=== PATIENT | female | born 2000 | race Caucasian/White ===

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

== ENCOUNTER 2025-02-27 12:43 | Emergency (ER) | payer OTHER, SELFPAY ==
[2025-02-27 12:43] VITALS: BP 130/88; PULSE 90; RESP 16; TEMP 36.4; O2SAT 99; BMI 41.1
--- NOTE | 2025-02-27 12:57 | VDLE_ITS ---
Reason For Study Reason For Study: Right leg swelling RIGHT GSV is normal. CFV is compressible, spontaneous, phasic, competent and demonstrates normal augmentation. FV is compressible, spontaneous, phasic, competent and demonstrates normal augmentation. POP V is compressible, spontaneous, phasic, competent and demonstrates normal augmentation. T/P Trunk is compressible. PTV is compressible. RT PerV is compressible. Procedure This is a venous duplex using B-mode, color flow and spectral Doppler. Exam performed portable in ED. A preliminary report was called and/or faxed to ED. VL/Venous Duplex US, Unilateral Interpretation Summary Deep veins of the right lower extremity are patent and compressible segmentally . There is no evidence of right lower extremity deep vein thrombosis. The right great saphenous vein appears patent a nd compressible segmentally. Ordering Physician: Júnior Champagne Referring Physician: Yumiko Lees Performed By: Lindsey Foreman RVT
--- NOTE | 2025-02-27 13:48 | EDS_ITS ---
HPI History of Present Illness Chief Complaint: Edema Narrative Narrative: Chief complaint and HPI: Right lower extremity swelling. 24-year-old female with no significant past medical history presents for evaluation of right lower extremity swelling. Patient states she goes to [employer]. She states yesterday she noticed that her right lower extremity was more swollen than the left. She denies any injury. She denies any pain in the area. Denies any lacerations, ecchymosis, bug bites, numbness/tingling, weakness. Patient went to an urgent care and was referred to the emergency department to rule out blood clot. Patient denies any fever, chills, chest pain, shortness of breath, Ravi pain, nausea, vomiting. She is not on control. No history of blood clots. Review of systems: See HPI Medications: As listed on the chart Allergies: As listed on the chart PFSH: Per chart Vital signs: As listed on the chart. Reviewed. Physical exam: Gen: A&O x3, NAD Head: Normocephalic, atraumatic Eyes: No sclera icterus, conjunctiva clear ENT: Moist mucous membranes Neck: Trachea midline, No JVD CV: RRR, no murmurs Resp: Lungs CTA BL, no w/r/c GI: Abd soft, non-distended, non-tender, no r/r/g Musc: Full ROM, no deformity, right calf is mildly swollen compared to the left- no warmth/erythema/abrasion/laceration/ecchymosis/induration/fluctuance, DP/PT pulses +2 bilaterally, compartments soft, negative Homans' sign, good capillary refill Skin: Warm, dry Neuro: Alert, oriented, grossly intact, sensation intact Psych: Cooperative, appropriate mood and affect [facility] Home Medications ?Medication ?Instructions ?Recorded ?Last Taken ?Type bacitracin zinc 500 unit/gram 1 applic topical TID #1 tube 10/15/19 Unknown Rx topical ointment famotidine 10 mg tablet 10 mg PO DAILY 10/15/19 Unkn own History ibuprofen 800 mg tablet 800 mg PO TID PRN PRN Unknown Rx Pain/Inflammation #20 tabs sertraline 25 mg tablet 25 mg PO DAILY 10/15/19 Unkn own History Allergy/AdvReac Type Severity Reaction Status Date / Time No Known Allergies Allergy Verified 02/27/25 12:44 Social History Smoking Status: Current every day smoker tobacco type: cigarettes EXAM Physical Exam Const Vital Signs: 02/27/25 12:43 02/27/25 12:53 Temperature 97.6 F L Temperature Source Temporal Pulse Rate 90 Respiratory Rate 16 Respiratory Effort Normal Respiratory Pattern Normal Blood Pressure 130/88 H Blood Pressure Mean 102 Pulse Ox 99 Oxygen Delivery Method Room Air MDM MDM MDM Narrative Medical decision making narrative: 24-year-old female with no significant past medical history presents for evaluation of right lower extremity swelling. She states yesterday she noticed that her right lower extremity was more swollen than the left. She denies any injury. She denies any pain in the area. Denies history of DVT. No signs or symptoms of infection. On physical exam, patient's right lower extremity is mildly swollen compared to the left. Otherwise unremarkable. Nonpainful. Differential diagnosis includes but is not limited to venous insufficiency, muscle strain, DVT. Given that there has been no injury and no pain, I do not think any x-ray is needed at this time. Physical exam is not consistent with cellulitis. Will obtain venous duplex ultrasound. Venous duplex ultrasound negative for DVT. At this point in time, no clear etiology for patient's sw elling. Follow-up with primary care physician. Return precautions explained. Return back to ED symptoms change or worsen. Patient and family confirmed understand the plan. Patient able to discharge home. Impression: 1. Right lower extremity edema Discharge Plan Triage Chief Complaint: Edema ED Provider: Júnior Champagne Dx/Rx/DC Orders Prescriptions: No Action ibuprofen 800 MG tablet 800 mg PO TID PRN PRN (Reason: Pain/Inflammation) Qty: 20 0RF bacitracin zinc 1 APPLIC ointment 1 applic topical TID Qty: 1 0RF famotidine 10 MG tablet 10 mg PO DAILY sertraline 25 MG tablet 25 mg PO DAILY Primary Care Provider: Care Physician,No Primary Referrals: Care Physician,No Primary [Primary Care Provider] - Print Language: Spanish
[2025-02-27 13:51] VITALS: BP 130/88; PULSE 90; RESP 16; TEMP 36.4; O2SAT 99
--- OUTSIDE RECORDS SUMMARY | 2025-02-27 19:55 | XMS RPT_ITS | CCD ---
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 Comment on above: Order Comment: Is th is specimen being sent to an external lab?->No Result Comment: Refe rence ranges provided by [facility] are based on Endocrine Society Guidelines: Level Characterization <21 ng/mL Vitamin D deficiency 21-29 ng/mL Suboptimal Vitamin D status 30-100 ng/mL Optimal Vitamin D status >100 ng/mL Potentially toxic Vitamin D effects NOTE: New Reference Ranges effective 18 Performed By: #### V 25DH #### [address] [address] Comp Metabolic Panelon 08-09 Albumin [Mass/Vol] 4.6 g/dL High 3.2-4.5 [facility] Comment on above: Order Comment: Is th is specimen being sent to an external lab?->No Performed By: #### C MP #### [address] [address] ALP [Catalytic activity/Vol] 60 U/L Normal 43-83 [facility] Comment on above: Order Comment: Is th is specimen being sent to an external lab?->No Performed By: #### C MP #### [address] [address] ALT [Catalytic activity/Vol] 10 U/L Normal 0-31 [facility] Comment on above: Order Comment: Is th is specimen being sent to an external lab?->No Performed By: #### C MP #### [address] [address] AST [Catalytic activity/Vol] 17 U/L Normal 0-31 [facility] Comment on above: Order Comment: Is th is specimen being sent to an external lab?->No Performed By: #### C MP #### [address] [address] Bili,Total 0.6 mg/dl Normal 0.0-1.0 [facility] Comment on above: Order Comment: Is th is specimen being sent to an external lab?->No Result Comment: Premature : 1 Day 1.0-6.0 mg/dl 2 Day 6.0-8.0 mg/dl 3-5 Day 10.0-15.0 mg/dl Performed By: #### C MP #### [place] [address] Calcium [Mass/Vol] 9.3 mg/dL Normal 7.6-11.0 [facility] Comment on above: Order Comment: Is th is specimen being sent to an external lab?->No Performed By: #### C MP #### [place] [address] Chloride [Moles/Vol] 106 mmol/L Normal 96-108 [facility] Comment on above: Order Comment: Is th is specimen being sent to an external lab?->No Performed By: #### C MP #### [address] [address] CO2 [Moles/Vol] 25.4 mmol/L Normal 22.0-29.0 [facility] Comment on above: Order Comment: Is th is specimen being sent to an external lab?->No Performed By: #### C MP #### [address] [address] Creatinine [Mass/Vol] 0.68 mg/dL Normal 0.50-1.00 [facility] Comment on above: Order Comment: Is th is specimen being sent to an external lab?->No Result Comment: Premature 0.3-1.0 mg/dL Performed By: #### C MP #### [address] [address] Glucose [Mass/Vol] 85 mg/dL Normal 70-99 [facility] Comment on above: Order Comment: Is th is specimen being sent to an external lab?->No Result Comment: Criteria for Diagnosis of Diabetes(Effective 01/11/11): Fasting specimen (no caloric intake for at least 8 hours). <100 mg/dl Normal 100-125 mg/dl Increased Risk for Diabetes >125 mg/dl Diagnostic for Diabetes Random Glucose (any time of day without regard to last meal). >=200 mg/dl plus Classic Symptoms of Diabetes Performed By: #### C MP #### [place] [address] Potassium [Moles/Vol] 3.8 mmol/L Normal 3.3-5.1 [facility] Comment on above: Order Comment: Is th is specimen being sent to an external lab?->No Performed By: #### C MP #### [place] [address] Protein [Mass/Vol] 8.4 g/dL High 6.0-8.0 [facility] Comment on above: Order Comment: Is th is specimen being sent to an external lab?->No Performed By: #### C MP #### [place] [address] Sodium [Moles/Vol] 138 mmol/L Normal 133-145 [facility] Comment on above: Order Comment: Is th is specimen being sent to an external lab?->No Performed By: #### C MP #### [address] [address] Urea nitrogen [Mass/Vol] 12 mg/dL Normal 4-19 [facility] Comment on above: Order Comment: Is th is specimen being sent to an external lab?->No Performed By: #### C MP #### [place] [address] ESRon 08-09-2019 ESR (Bld) [Velocity] 14 mm Normal [facility] Comment on above: Order Comment: Is th is specimen being sent to an external lab?->No Performed By: #### S RATE #### [address] [address] ESR (Bld) [Velocity] ----- Normal [facility] Comment on above: Order Comment: Is th is specimen being sent to an external lab?->No Result Comment: Male Female Child 0-13 Child 0-13 Adult 0- 9 Adult 0-20 Performed By: #### S RATE #### [address] [address] Hemoglobin A1con 08-09-2019 HbA1c (Bld) [Mass fraction] ----- Normal [facility] Comment on above: Order Comment: Is th is specimen being sent to an external lab?->No Result Comment: Reference Interval <5.7% 5.7%-6.4% prediabetes >/= 6.5% diabetes Targets for diabetes management: Type I <7.5% Type II <7.0% Change in reference range effective 2018 Performed By: #### H BA1C #### [address] [address] Lipid Panelon 08-09-2019 Cholesterol [Mass/Vol] 140 mg/dL Normal 0-169 [facility] Comment on above: Order Comment: Is th is specimen being sent to an external lab?->No Result Comment: Acceptable <170 mg/dL Borderline 170-199 mg/dL Abnormal >199 mg/dL NOTE: Reference Range change effective 07/11/18 Performed By: #### L IPID #### [address] [address] Cholesterol in HDL [Mass/Vol] 39 mg/dL Abnormal [facility] Comment on above: Order Comment: Is th is specimen being sent to an external lab?->No Result Comment: Acceptable >45 mg/dL Borderline 40-45 mg/dL Abnormal <40 mg/dL NOTE: Reference Range change effective 07/11/18 Performed By: #### L IPID #### [address] [id number] Cholesterol in LDL [Mass/Vol] 93 mg/dL Normal 0-109 [facility] Comment on above: Order Comment: Is th is specimen being sent to an external lab?->No Result Comment: Acceptable <110 mg/dL Borderline 110-129 mg/dL Abnormal >129 mg/dl NOTE: Reference Range change effective 07/11/18 Performed By: #### L IPID #### [address] [id number] Non-HDL Cholesterol 101 mg/dL Normal 0-119 [facility] Comment on above: Order Comment: Is th is specimen being sent to an external lab?->No Result Comment: Acceptable <120 mg/dL Borderline 120-144 mg/dL Abnormal >144 mg/dl Performed By: #### L IPID #### [address] [address] Triglyceride [Mass/Vol] 41 mg/dL Normal 0-89 [facility] Comment on above: Order Comment: Is th is specimen being sent to an external lab?->No Result Comment: Acceptable <90 mg/dl Borderline 90-129 mg/dl Abnormal >129 mg/dl NOTE: Reference Range change effective 07/11/18 Result invalid if not a fasting specimen. Performed By: #### L IPID #### [address] [address] Progress Noteon 08-09-2019 [employer] Aut[employer] Interface Message Text Patient ID: Vick Chan is a 18 y.o. female. Her chief complaint(s) include: 18 YEAR WELL CHILD (stomach pain, hives- mom thinks its stress, bumps on hands and feet that are painfull hurts to walk hurts to use hands) Assessment 1. Encounter for routine child health examination without abnormal findings 2. Overweight 3. Abnormal weight gain 4. Constipation, unspecified constipation type 5. Depression with anxiety 6. Screening for endocrine, metabolic and immunity disorder 7. Exercise counseling 8. Encounter for dietary counseling and surveillance 9. Need for vaccination 10. Screening for lipoid disorders 11. Rash and nonspecific skin eruption 12. Abdominal pain, generalized Plan Vick was seen today for 18 year well child. Diagnoses and all orders for this visit: Encounter for routine child health examination without abnormal findings - Behavioral/Emotional Assessment w Score - PHQ-9 - TSH - T4, free (Clinic Collect) - Cancel: AST [SGOT] (Clinic Collect) - Cancel: ALT [SGPT] (Clinic Collect) - Vitamin D 25 hydroxy (Clinic Collect) - Hemoglobin A1c (Clinic Collect) Overweight - TSH - T4, free (Clinic Collect) - Cancel: AST [SGOT] (Clinic Collect) - Cancel: ALT [SGPT] (Clinic Collect) - Hemoglobin A1c (Clinic Collect) Abnormal weight gain - TSH - T4, free (Clinic Collect) - Cancel: AST [SGOT] (Clinic Collect) - Cancel: ALT [SGPT] (Clinic Collect) - Hemoglobin A1c (Clinic Collect) Constipation, unspecified constipation type Depression with anxiety - sertraline (ZOLOFT) 25 MG tablet; Take 1 Tab (25 mg) by mouth daily Screening for endocrine, metabolic and immunity disorder - TSH - T4, free (Clinic Collect) - Cancel: AST [SGOT] (Clinic Collect) - Cancel: ALT [SGPT] (Clinic Collect) - Vitamin D 25 hydroxy (Clinic Collect) - Hemoglobin A1c (Clinic Collect) - POCT Blood Glucose Exercise counseling Encounter for dietary counseling and surveillance Need for vaccination - Meningococcal ACWY (MENACTRA) - Meningococcal B (BEXSERO) - Influenza Vaccine 0.5 mL >= 6 mo Quadrivalent (PF) Screening for lipoid disorders - Lipid panel - Venipuncture Rash and nonspecific skin eruption Abdominal pain, generalized - Comprehensive metabolic panel (Clinic Collect) - ESR (Clinic Collect) Discussed restarting fiber gummies for the constipation since they appeared to work in the past. Will send picture of rash on hands and feet to dermatology to see if they have any thoughts. Will restart counseling for patient to help with depression/anxiety. Return in about 1 year (around 08/09/2020) for well check, 1 months for Depression/Anxiety medication recheck. Subjective She is accompanied by her mother. 18 YEAR WELL CHILD Home: Vick eats meals with family, has an adult to turn to for help, is permitted and able to make independent decisions and pays bills (phone). Vick has no home risk identified. Education: Vick is in 12th grade and is adjusting adequately, earns A's & B's and is getting along with peers. (Struggling with Statistics). Eating: Vick drinks non-sweetened liquids (drinks a lot of pop). Vick does not eat regular meals including fruits and vegetables, does not eat breakfast, does not limit fast food and does not have a calcium source. Activities & Sports: Vick has a job ([employer]) and performs at least 1 hour of physical activity daily. Vick engages in screen time more than 2 hours daily, does not play team sports, does not participate in music programs and does not participate in clubs. Drugs: Vick does not use tobacco, does not use drugs, does not use alcohol and does not vape. Safety: Vick has a violence free home, has peer relationships free from violence and uses seat belt (only if in the front---instructed to wear seat belt no matter where she is riding). Vick does not use helmet (never rode a bike) and does not use phone/text while driving (does not drive). Sex: The patient has never had a sexual partner. The patient is interested in males. The patient has never had sex. The patient's sexual orientation is heterosexual. The patient's gender identity is cisgender. Suicidality: Vick displays self-confidence (depends on the day), has problems with sleep, has depression, has anxiety, has mood swings and has a mental health risk identified. Vick does not have ways to cope with stress, has no suicidal ideation, has no homicidal ideation and is not engaged in counseling (in the past). PHQ-9 Score: 15 Menstruation Last Menstrual period: LMP from Vitals Patient's last menstrual period was 07/28/2019.. (Menarche: age 13) Menstruation: regular periods and minimal cramping Output Urine and Stool Pattern: Urine and Stool Pattern: Normal stool pattern, constipation (off/on), normal urine pattern, no nocturnal enuresis. Stool Consistency: hard/firm Sleep Sleeping Difficulty: difficulty falling asleep Hours of sleep at a time: 4 (to 8 hours) Teen Anticipatory Guidance The following anticipatory guidance was reviewed during the visit: Nutrition: limit junk food/fast food and soft drinks. Safety: gun safety, home safety and use safety helmet/gear with activities. Social: avoid or limit screen time and parental limits and consequences for unacceptable behavior. Health: age appropriate dental care, age appropriate sleep habits, elevated noise and hearing, how to resist peer pressure to smoke, drink, use drugs, if abusing drugs or alcohol help is available, seek assistance, contraception/practice safe sex/ use condoms, practice abstinence- the safest way to prevent and STDs, discuss athletic conditioning/ weight training/weight supplements, learn to manage time and activities and be responsible for attendance/ homework/ course selection. Screenings Previous Vaccine Reactions: No. Life events information was reviewed-no referral needed (Social determinant questionnaire completed: no concerns at this time) Tuberculosis Concerns: Negative Tuberculosis Screen Concerns: no exposure to Tb or person with positive ppd Hearing Vision Concerns: Patient wears glasses or contact lenses. The caregiver has no concerns about the patient's hearing. The caregiver has concerns about the patient's vision. Patient is being seen by rail loader or steel pourer. (Patient has really poor vision---eye doctor trying to decide next step). Hyperlipidemia Concerns: Positive Hyperlipidemia Screen Concerns: parent or grandparent with [place] angina peripheral or cerebrovascular disease <55 years (father) Negative Hyperlipidemia Screen Concerns: no parent with cholesterol >240mg/dl BMI >95%: zoloft. Additional Parental Concerns: Patient will randomly get rash/painful lesions on hands and feet---off/on. Lesions also itch. No pattern to the onset. Could be related to stress. Lesions can be hard. May last couple of days and resolve. Nothing seems to help but patient won't take many meds. Has history of ongoing GI problems including constipation/dairy intolerance. Primary Care Review of Systems Objective Vital Signs 08/09/19 0920 BP: 122/74 Pulse: 109 Weight: 94.1 kg Height: 163 cm Body mass index is 35.42 kg/m . Physical Exam Constitutional: She appears well. She is active. No distress. overweight HENT: Head: Atraumatic. Right Ear: Tympanic membrane and external ear normal. Left Ear: Tympanic membrane and external ear normal. Nose: Nose normal. Mouth/Throat: Mucous membranes are moist. Dentition is normal. Oropharynx is clear. Eyes: Conjunctivae and EOM are normal. No strabismus. Pupils are equal, round, and reactive to light. Neck: Normal range of motion. Neck supple. Thyroid normal. No neck adenopathy. Cardiovascular: Normal rate, regular rhythm, S1 normal and S2 normal. Pulses are palpable. Heart murmur not heard. Pulmonary/Chest: Breath sounds normal. No respiratory distress. Exhibits no deformity. Abdominal: Soft. Bowel sounds are normal. She exhibits no distension and no mass. There is no hepatosplenomegaly. There is no tenderness. Musculoskeletal: Normal range of motion. Back: She exhibits no scoliosis. Neurological: She is alert. She has normal strength. She exhibits normal muscle tone. Gait normal. Skin: No rash noted. There is no pallor. Skin is warm. Vitals reviewed: Blood pressure 122/74, pulse 109, height 163 cm, weight 94.1 kg, last menstrual period 07/28/2019. Last Result POCT Blood Glucose Collection Time: 08/09/19 10:24 AM Result Value Ref Range POCT Glucose, Blood 88 60 - 110 mg/dL Normal [facility] Vital Signs Date Time Vital Sign Value Performing Clinician Rubeni ehsan 02-27-2025 13:51-0400 Body temperature 97.6 [degF] Dr. Júnior Champagne DO Work Phone: [facility] 02-27-2025 13:51-0400 Diastolic blood pressure 88 mm[Hg] Dr. Júnior Champagne DO Work Phone: [facility] 02-27-2025 13:51-0400 Heart rate 90 /min Dr. Júnior Champagne DO Work Phone: [facility] 02-27-2025 13:51-0400 Respiratory rate 16 /min Dr. Júnior Champagne DO Work Phone: [facility] 02-27-2025 13:51-0400 SaO2% (BldA) [Mass fraction] 99 % Dr. Júnior Champagne DO Work Phone: [facility] 02-27-2025 13:51-0400 Systolic blood pressure 130 mm[Hg] Dr. Júnior Champagne DO Work Phone: [facility] 02-27-2025 12:43-0400 Body height 162.[address] Júnior Champagne DO Work Phone: [facility] 02-27-2025 12:43-0400 Body mass index (BMI) [Ratio] 41.1 kg/m2 Dr. Júnior Champagne DO Work Phone: [facility] 02-27-2025 12:43-0400 Body weight 108.[address] Júnior Champagne DO Work Phone: [facility] Encounters Encounter Date Encounter Type Care Provider Facility Start: 02-27-2025 End: 02-27-2025 Emergency department patient visit Dr. Júnior Champagne DO Work Phone: -Emergency Department Work Phone: Plan of Treatment Date Care Activity Detail Author Start: 02-27-2025 [facility] Patient Education ED Peripheral Edema, Unilateral [facility] Work Phone: Payers Date Payer Category Payer Policy ID Unknown [id number] Unknown [id number] Unknown [id number] Social History Date Type Detail Facility Start: [facility]27[facility] Start: 2000 Sex Assigned At Female [facility] Mental Status Date Assessment Result Facility 02-27-2025 Cognitive function Level Of Cons ciousness Awake;Alert;Appropriate;Follow s Commands [facility] Work Phone: Discharge summary 02-27-2025 Note Date & Type Note Facility 02-27-2025 Discharge summary Note Date/Time February 27, 2025 1:50 pm [facility] Medical Records Department [address] [place] [address] Emergency Department Summary 02/27/25 MR#: [id number] Acct: [id number] Name: VICK CHAN Rep #:[id number] : 2000 24 From: Júnior bonillaett DO PCP: Care Physician,No Primary Status :REG ER Location: ED HPI History of Present Illness Chief Complaint: Edema Narrative Narrative: Chief complaint and HPI: Right lower extremity swelling. 24-year-old female with no significant past medical history presents for evaluation of right lower extremity swelling. Patient [place]. She states yesterday she noticed that her right lower extremity was more swollen than the left. She denies any injury. She denies any pain in the area. Denies any lacerations, ecchymosis, bug bites, numbness/tingling, weakness. Patient went to an urgent care and was referred to the emergency department to rule out bloodclot. Patient denies any fever, chills, chest pain, shortness of breath, Ravi pain, nausea, vomiting. She is not on control. No history of blood clots. Review of systems: See HPI Medications: As listed on the chart Allergies: As listed on the chart PFSH: Per chart Vital signs: As listed on the chart. Reviewed. Physical exam: Gen: A&O x3, NAD Head: Normocephalic, atraumatic Eyes: No sclera icterus, conjunctiva clear ENT: Moist mucous membranes Neck: Trachea midline, No JVD CV: RRR, no murmurs Resp: Lungs CTA BL, no w/r/c GI: Abd soft, non-distended, non-tender, no r/r/g Musc: Full ROM, no deformity, right calf is mildly swollen compared to the left-no warmth/erythema/abrasion/laceration/ecchymosis/indur ation/fluctuance, DP/PT pulses +2 bilaterally, compartments soft, negative Homans' sign, good capillary refill Skin: Warm, dry Neuro: Alert, oriented, grossly intact, sensation intact Psych: Cooperative, appropriate mood and affect [facility] Home Medications ?Medication ?Instructions ?Recorded ?Last Taken ?Type bacitracin zinc 500 unit/gram 1 applic topical TID #1 tube 10/15/19 Unknown Rx topical ointment famotidine 10 mg tablet 10 mg PO DAILY 10/15/19 Unkn own History ibuprofen 800 mg tablet 800 mg PO TID PRN PRN Unknown Rx Pain/Inflammation #20 tabs sertraline 25 mg tablet 25 mg PO DAILY 10/15/19 Unkn own History Allergy/AdvReac Type Severity Reaction Status Date / Time No Known Allergies Allergy Verified 02/27/25 12:44 Social History Smoking Status: Current every day smoker tobacco type: cigarettes EXAM Physical Exam Const Vital Signs: 02/27/25 12:43 02/27/25 12:53 Temperature 97.6 F L Temperature Source Temporal Pulse Rate 90 Respiratory Rate 16 Respiratory Effort Normal Respiratory Pattern Normal Blood Pressure 130/88 H Blood Pressure Mean 102 Pulse Ox 99 Oxygen Delivery Method Room Air MDM MDM MDM Narrative Medical decision making narrative: 24-year-old female with no significant past medical history presents for evaluation of right lower extremity swelling. She states yesterday she noticed that her right lower extremity was more swollen than the left. She denies any injury. She denies any pain in the area. Denies history of DVT. No signs or symptoms of infection. On physical exam, patient's right lower extremity is mildly swollen compared to the left. Otherwise unremarkable. Nonpainful. Differential diagnosis includes but is not limited to venous insufficiency, muscle strain, DVT. Given that there has been no injury and no pain, I do not think any x-ray is needed at this time. Physical exam is not consistent with cellulitis. Will obtain venous duplex ultrasound. Venous duplex ultrasound negative for DVT. At this point in time, no clear etiology for patient's swelling. Follow-up with primary care physician. Return precautions explained. Return back to ED symptoms change or worsen. Patient and family confirmed understand the plan. Patient able to discharge home. Impression: 1. Right lower extremity edema Discharge Plan Triage Chief Complaint: Edema ED Provider: Júnior Champagne Dx/Rx/DC Orders Prescriptions: No Action ibuprofen 800 MG tablet 800 mg PO TID PRN PRN (Reason: Pain/Inflammation) Qty: 20 0RF bacitracin zinc 1 APPLIC ointment 1 applic topical TID Qty: 1 0RF famotidine 10 MG tablet 10 mg PO DAILY sertraline 25 MG tablet 25 mg PO DAILY Primary Care Provider: Care Physician,No Primary Referrals: Care Physician,No Primary [Primary Care Provider] - Print Language: Maltese What to do if you have Problems For any increased pain, shortness of breath, bleeding, nausea or vomiting, chestpain, or any unexpected problems, contact your Primary Care Provider. Call [facility] ([phone]) or report to the closest Emergency Room. Call 911 if necessary. 02/27/25 1350 <Electronically signed by Júnior Champagne DO> Cosigner Signature (if applicable): CC: No Primary Care Physician ~ Signed [facility] Work Phone: Discharge summary 02-27-2025 Note Date & Type Note Facility 02-27-2025 Discharge summary [facility] Evaluation note Note Date & Type Note Facility Evaluation note No assessment information availa ble [facility] Work Phone: Hospital Discharge instructions Note Date & Type Note Facility Hospital Discharge instructions Additional Instructions Follow-up with your primary care physician. If you do not have a primary care physician follow-up with the one listed above. Return back to the ED symptoms change or worsen. Your ultrasound was negative for blood clot. At this point in time, no clear reason for your swelling. [facility] Work Phone: Reason for referral (narrative) Note Date & Type Note Facility Reason for referral (narrative) No reason for referral information available [facility] Work Phone: Summary Purpose Family History No Family History Records FoundNo Family History Records FoundNo Family History Records Found Advance Directives Advance Directive Response Recorded Date/ Time Do you have a Healthcare Power of Desk Representative? No February 27, 2025 12:53pm Chief Complaint and Reason for Visit Chief Complaint Admit Date EDEMA February 27, 2025 12:4 3pm Additional Source Comments INFORMATION SOURCE (unrecogn ized section and content) DATE CREATED AUTHOR 11/12/2019 [facility] DATE CREATED AUTHOR AUTHOR'S ORGANIZ ATION 03/04/2020 [facility] DATE CREATED AUTHOR AUTHOR'S ORGANIZ ATION 03/29/2020 [facility] Care Teams (unrecognized sec tion and content) Team Status: Active Member Role/Relationship Status Dates No Primary Care Physician Primary Care Provider Active Team Status: Inactive Member Role/Relationship Status Dates Dr. Júnior Champagne DO Emergency Provider Activ e Start: February 27, 2025 End: February 27, 2025 No Primary Care Physician Primary Care Provider Active Start: February 27, 2025 End: February 27, 2025 Goals (unrecognized section and content) Goals may be documented in a n alternate section FOR RECORDS PERTAINING TO PATIENTS WHO ARE OR HAVE BEEN ENROLLED IN A CHEMICAL DEPENDENCY/SUBSTANCEABUSE PROGRAM, SOME INFORMATION MAY BE OMITTED. This clinical summary was aggregated from multiple sources. Caution should be exercised in using it in the provision of clinical care. This summary normalizes information from multiple sources, and as a consequence, information in this document may materially change the coding, format and clinical context of patient data. In addition, data may be omitted in some cases. CLINICAL DECISIONS SHOULD BE BASED ON THE PRIMARY CLINICAL RECORDS. [facility] provides no warranty or guarantee of the accuracy or completeness of information in this document.
== END 2025-02-27 14:01 | disposition home or self-care (01) ==
PROVIDERS: Emergency Provider Surgery; Visit Provider Surgery
DX: R60.0 Localized edema (principal); F17.210 Nicotine dependence, cigarettes, uncomplicated
CPT/HCPCS: 93971; 99282